=== PATIENT | male | born 1950 | race Caucasian/White ===

== ENCOUNTER → 2017-08-25 | Outpatient (CLI) | payer OTHER, MEDICARE | LOC: SBRMNEURO 21:00 | PROVIDERS: ATTEND Psychiatry & Neurology Sleep Medicine | DX: G47.33 Obstructive sleep apnea (adult) (pediatric) (principal) ==

== ENCOUNTER → 2017-09-20 | Outpatient (CLI) | payer OTHER, MEDICARE | LOC: BMCIMAGING 09:01 | PROVIDERS: ATTEND Orthopaedic Surgery Hand Surgery | DX: M18.0 Bilateral primary osteoarthritis of first carpometacarpal joints (principal); M19.042 Primary osteoarthritis, left hand; M25.642 Stiffness of left hand, not elsewhere classified; R93.6 Abnormal findings on diagnostic imaging of limbs ==

== ENCOUNTER → 2018-02-17 | Outpatient (CLI) | payer OTHER, MEDICARE | LOC: FIMAGING 19:25 | PROVIDERS: ATTEND Orthopaedic Surgery | DX: S83.281A Other tear of lateral meniscus, current injury, right knee, initial encounter (principal) ==